=== PATIENT | male | born 1990 | race Caucasian/White ===

== ENCOUNTER 2020-02-07 07:50 | Day surgery (SDC) | payer BC ==
[~2020-02-07] VITALS: Ht 172.7 cm; Wt 59.9 kg
[~2020-02-07 07:50] MED LIST: OXYC-517 PO
[2020-02-07] MEDS ORDERED: ceFAZolin 2 GM/D5W 50 ML IV BAG (J0690 PER 500MG) As Ordered ONE (08:13)
[2020-02-07] MEDS ORDERED: LIDOCAINE 2% 100MG/5ML SDV (FOR ANES.) As Ordered ONE (11:46)
[2020-02-07] MEDS ORDERED: MIDAZOLAM INJ 2MG/2ML VIAL (J2250 PER 1MG) As Ordered ONE (11:46)
[2020-02-07] MEDS ORDERED: propofoL 200 MG/20 ML VIAL As Ordered ONE (11:46)
[2020-02-07] MEDS ORDERED: fentaNYL 100 MCG/2 ML INJECTION (J3010) As Ordered ONE ×2 (11:46→13:52)
[2020-02-07] MEDS ORDERED: dexameTHASONE 4 MG/ML 1ML VIAL (J1100 PER 1MG) As Ordered ONE (13:13)
[2020-02-07] MEDS ORDERED: KETOROLAC 60MG 2ML VIAL As Ordered ONE (13:13)
[2020-02-07] MEDS ORDERED: METOCLOPRAMIDE INJ 10MG/2ML VIAL (J2765 PER 1) As Ordered ONE (13:13)
[2020-02-07] MEDS ORDERED: PHENYLephrine HCL 500 MCG/5 ML (100MCG/ML) SYRINGE (J2370) As Ordered ONE (14:00)
[2020-02-07] MEDS ORDERED: ONDANSETRON 4MG/2ML VIAL As Ordered ONE (14:02)
[2020-02-07] MEDS ORDERED: ceFAZolin 2 GM/D5W 50 ML IV BAG (J0690 PER 500MG) IV ONE (14:16)
[2020-02-07] MEDS ORDERED: ePHEDrine SULFATE 25 MG/5 ML(5MG/ML) SYRINGE As Ordered ONE (14:21)
[2020-02-07] MEDS ORDERED: BUPIVACAINE HCL 0.25% 30ML VIAL As Ordered ONE (14:30)
[2020-02-07] MEDS ORDERED: PERCOCET 5MG/325MG TAB PO PRN (15:00)
[2020-02-07] MEDS ORDERED: ONDANSETRON 4MG/2ML VIAL IV PRN ×2 (15:00)
[2020-02-07] MEDS ORDERED: ACETAMINOPHEN TAB 650MG DOSE (2X325MG) PO PRN (15:00)
[2020-02-07] MEDS ORDERED: MORPHINE 2 MG/ML 1ML VIAL (J2270) IV PRN (15:00)
[2020-02-07] MEDS ORDERED: LR 1,000 ML IV SCH ×2 (15:00)
[2020-02-07] MEDS ORDERED: METOCLOPRAMIDE INJ 10MG/2ML VIAL (J2765 PER 1) IV PRN (15:00)
[2020-02-07] MEDS ORDERED: MEPERIDINE INJ 25 MG/ML VIAL (J2175) IV PRN (15:00)
[2020-02-07] MEDS: oxyCODONE 5MG TAB PO PRN ×2 (15:02→15:32)
[2020-02-07] MEDS: fentaNYL 100 MCG/2 ML INJECTION (J3010) IV PRN ×4 (15:07→15:22)
[2020-02-07 16:45] VITALS: BP 124/88
--- NOTE | 2020-03-27 09:33 | RO ---
DATE OF OPERATION: 02/07/2020 SURGEON: Dr. Akshat Frederick ANESTHESIA: Dr. White TYPE OF ANESTHETIC: General anesthetic. [employer]ARD OPERATOR: Jovanny Betts PREOPERATIVE DIAGNOSIS: Left elbow lateral epicondylitis and cubital tunnel syndrome. POSTOPERATIVE DIAGNOSIS: Left elbow lateral epicondylitis and cubital tunnel syndrome. PLANNED PROCEDURE: Left elbow lateral epicondylitis debridement, elbow arthroscopy, cubital tunnel release. PROCEDURE PERFORMED: Left elbow lateral epicondylitis debridement, elbow arthroscopy, cubital tunnel release. OPERATIVE PREAMBLE: This 29-year-old man has symptoms and signs on MRI and electromyelogram (EMG) findings of cubital tunnel syndrome and lateral epicondylitis. We talked about the pros, cons, risks, benefits of going ahead with left elbow arthroscopy, debridement of lateral epicondyle, as well as cubital tunnel release. He wished to go ahead. We marked the left upper extremity prior to the case, reiterated the intraoperative risks, and proceeded with surgery. OPERATIVE REPORT: Patient was brought to the operating room theater. They administered general anesthetic. They administered 2 grams of intravenous (IV) Ancef. They placed in left lateral decubitus with the aid of beanbag positioner. Age[employer]hew Wellman Elbow Positioner was used. An 18-inch tourniquet was applied. This was fixated into the Age[employer]hew elbow positioner. Arm was prepped and draped in the usual sterile fashion. We allowed over 3 minutes prep solution drying time. All bone prominences were padded. Axillary roll was used. Preoperative time-out was performed, confirming the site, the patient, and surgery. We marked the relevant bony anatomy. I made a percutaneous anterosuperior medial portal. Used curved snap. I infiltrated 15 mL through the lateral soft spot portal of normal saline into the joint. I used a curved snap through the anterosuperior medial portal to enter the joint. The inserted the arthroscope into the joint. I used gravity inflow and gravity outflow. I examined the full intra-articular extent of the joint. The undersurface of the extensor carpi radialis longus (ECRL) appeared pathologic. This was debrided in a triangular- shaped fashion, staying above the equator. I used inside-out spinal needle localization to create an anterior superolateral portal as well using percutaneous technique and curved snap. I used gentle debriding instruments with gravity outflow. I debrided a triangular-shaped region away. Did some gentle debridement directly at the lateral epicondyle until I saw the extensor carpi radialis brevis ECRB muscle belly underneath. I protected the ligament throughout the case. Switching stick was used to switch the scope to the lateral side. Full intra-articular extent of the anterior compartment of the elbow was examined. Some gentle debridement around the radial head was performed as well. No obvious loose bodies. There was some mild chondral fraying at the superior aspect of the trochlea, but this appeared relatively extra-articular. Elbow was moving smoothly. Coronoid tip appeared normal. Arthroscope was withdrawn. I then turned my attention to the cubital tunnel release. I made a longitudinal incision directly over the ulnar nerve. I carried the dissection down through skin and subcutaneous tissue, achieving meticulous hemostasis. I released all potential sites of compression along the entire length of the nerve up to the medial intermuscular septum, medial head of the triceps, medial ligament as well as medial epicondyle and distally through the FCU. The nerve did not appear to have any obvious sites of compression and was intact and left in situ due to no snapping at the end of the case. The wound was thoroughly irrigated. Tourniquet was not inflated throughout the case. Subcutaneous tissues closed with interrupted 3-0 Vicryl suture and skin with 3-0 Ethilon in a simple fashion for the portal sites as well as horizontal mattress fashion for the cubital tunnel incision. There was 8 mL of 0.25% Marcaine plain was instilled around the incision site and the portal sites. Skin was cleaned with wet-to-dry dressing. Adaptic, 4 x 8 gauze, and ABD dressing was then over-wrapped and sterile 4-inch Shamar bandage was placed and patient's upper extremity placed into a sling. Drapes were taken down. Patient woken up from general anesthetic, transferred off the operating table, and taken to the postanesthesia care unit in stable condition. All sponge counts, needle counts, and instrument counts were correct. ESTIMATED BLOOD LOSS: 10 mL. PLAN: The patient is to be range of motion as tolerated. No heavy lifting or gripping for first 6 weeks. Change dressing postoperative day #1 and followup in the office in 2 weeks' time. He will be discharged home according to day surgery criteria. [facility]
== END 2020-02-07 16:51 | disposition home or self-care (01) ==
LOC: M SDC 07:50
PROVIDERS: ATTEND Orthopaedic Surgery Sports Medicine
DX: M77.12 Lateral epicondylitis, left elbow (principal); G56.22 Lesion of ulnar nerve, left upper limb; M50.20 Other cervical disc displacement, unspecified cervical region; F17.220 Nicotine dependence, chewing tobacco, uncomplicated
CPT/HCPCS: 29838; 64718; J0690; J1100; J1885; J2250; J2370; J2405; J2765; J3010

== ENCOUNTER → 2021-02-26 | Outpatient (CLI) | payer BC ==
--- NOTE | 2021-02-26 15:17 | REP ---
INDICATION: LT KNEE PAIN. COMPARISON: None. TECHNIQUE: Five views left knee. FINDINGS: There is no evidence of acute fracture, dislocation or intrinsic bone disease. No significant arthritic changes are seen. There is no radiographic evidence of a significant joint effusion. IMPRESSION: Negative left knee series. <Electronically signed by Moe Camacho > 02/26/21 [id number]
== END ==
LOC: M SOG 13:40
PROVIDERS: ATTEND Orthopaedic Surgery Sports Medicine
DX: M25.562 Pain in left knee (principal)

== ENCOUNTER → 2021-03-02 | Outpatient (CLI) | payer BC ==
--- NOTE | 2021-03-02 10:13 | REP ---
INDICATION: ASSESS POSSIBLE MENISCUS TEAR. COMPARISON: Radiographs 02/26/2021. TECHNIQUE: Multiple sequences obtained in the axial, coronal and sagittal planes. FINDINGS: Menisci: Intact, no tear. Cruciate ligaments: Intact. Collateral ligaments: Intact. Extensor mechanism/patellar retinacula: Intact. Cartilage: Smooth, no osteochondral defect. Bone marrow: Normal signal, no edema or occult fracture. Joint fluid: No effusion. Popliteal region: No cyst. IMPRESSION: Negative MRI of the knee. <Electronically signed by Moe Camacho > 03/02/21 [id number]
== END ==
LOC: M RAD 07:45
PROVIDERS: ATTEND Orthopaedic Surgery Sports Medicine
DX: M79.89 Other specified soft tissue disorders (principal)